=== PATIENT | female | born 1955 | race African-American/Black ===

== ENCOUNTER → 2016-05-20 | Outpatient (CLI) | payer OTHER ==
[~2016-05-20] MED LIST: ASPI325T PO; CRAN500C2 PO; LISI10TA PO; METF500 PO; PERC5TAB12 PO; VITA-13 PO; VITA500T49 PO; VITATAB PO
== END ==
LOC: ELAB 07:07
PROVIDERS: ATTEND Internal Medicine
DX: Z00.00 Encounter for general adult medical examination without abnormal findings (principal)